=== PATIENT | female | born 1970 | race Caucasian/White ===

== ENCOUNTER 2018-08-16 15:59 | Emergency (ER) | payer BC ==
[~2018-08-16] VITALS: Ht 157.4 cm; Wt 95.3 kg
[~2018-08-16 15:59] MED LIST: AUGMENTIN 875 M1 TA1 PO; AUGMENTIN 875 M1 TAB PO; CALCIUM CARBO1250 MG PO; CALCIUM1 CAP PO; CIPROFLOXACIN500 MG PO; CLARITIN10 MG PO; COLACE100 MG PO; DARVOCET N 1001 TAB PO; DAYPRO600 M1 PO; DULCOLAX10 MG RC; EES400 MG PO; EPI EZ PEN1 MG/ML IM; KEFLEX500 MG PO; MAGNESIA C1.75 GM/30 PO; MEDROL DOSEPAK4 MG PO; MOTRIN600 MG PO; MOTRIN800 MG PO; NORCO 325 MG-51 TAB PO; PERCOCET 325 MG1 TA2 PO; PRENATAL1 TA4 PO; PROVENTIL0.09 MG/AC IH; VICODIN ES 7501 TAB PO; ZITHROMAX Z PA250 MG PO
[2018-08-16] MEDS ORDERED: SEPTDS PO (16:09)
[2018-08-16] MEDS ORDERED: KEFLEX500 M1 PO (16:09)
== END 2018-08-16 16:19 | disposition home or self-care (01) ==
LOC: ED 15:59
DX: N61.1 Abscess of the breast and nipple (principal); Z91.030 Bee allergy status

== ENCOUNTER 2019-06-27 13:32 | Emergency (ER) | payer BC ==
[~2019-06-27] VITALS: Ht 157.4 cm; Wt 90.7 kg
[~2019-06-27 13:32] MED LIST changes: +KEFLEX500 M1 PO; +SEPTDS PO
[2019-06-27] MEDS ORDERED: AMOXICILLIN500 M2 PO (13:57)
[2019-06-27] MEDS ORDERED: NAPROSYN500 MG PO (13:57)
== END 2019-06-27 14:09 | disposition home or self-care (01) ==
LOC: ED 13:32
DX: K04.7 Periapical abscess without sinus (principal); Z91.030 Bee allergy status; Z79.2 Long term (current) use of antibiotics

== ENCOUNTER 2020-02-02 21:01 | Emergency (ER) | payer BC ==
[~2020-02-02 21:01] MED LIST changes: +AMOXICILLIN500 M2 PO; +NAPROSYN500 MG PO
[2020-02-02] MEDS ORDERED: PREDNISONE10 MG PO (21:11)
== END 2020-02-02 21:13 | disposition home or self-care (01) ==
LOC: ED 21:01
DX: L23.7 Allergic contact dermatitis due to plants, except food (principal); Z91.030 Bee allergy status

== ENCOUNTER 2023-11-28 20:21 | Emergency (ER) | payer BC ==
[~2023-11-28] VITALS: Ht 157.4 cm; Wt 102.1 kg
[~2023-11-28 20:21] MED LIST changes: +PREDNISONE10 MG PO
[2023-11-28] MEDS ORDERED: MEDROL DOSEPAK4 MG PO (21:41)
== END 2023-11-28 22:01 | disposition home or self-care (01) ==
LOC: ED 20:21
DX: S29.011A Strain of muscle and tendon of front wall of thorax, initial encounter (principal); J40 Bronchitis, not specified as acute or chronic; Z91.030 Bee allergy status; Z98.890 Other specified postprocedural states; X58.XXXA Exposure to other specified factors, initial encounter; Y93.89 Activity, other specified; Y92.89 Other specified places as the place of occurrence of the external cause; Y99.8 Other external cause status

== ENCOUNTER 2025-04-03 20:26 | Emergency (ER) | payer BC ==
[~2025-04-03] VITALS: Ht 157.4 cm; Wt 104.3 kg
[2025-04-03] MEDS ORDERED: LYLLANA1 EAC4 TD (20:38)
[2025-04-03] MEDS ORDERED: PROGESTERONE100 M2 PO (20:38)
[2025-04-03] MEDS ORDERED: SODIUM CHLORIDE 0.9% 1,000 ML IV ONE (20:45)
[2025-04-03 21:20] LABS: MEAN CELL VOLUME 95.4 fl (81.0-99.0); MEAN CORPUSCULAR HGB 31.4 pg (27.0-31.0); MEAN PLATELET VOLUME 9.0 fl (9.6-12.3); NUCLEATED RED BLOOD CELL 0.0 % (0.0-0.0); NUCLEATED RED BLOOD CELL 0.0 10*3/uL (0.0-0.0); PLATELET COUNT AUTOMATED 348 10*3/uL (130-400); RED CELL DISTRI WIDTH 14.1 % (0-14.5)
[2025-04-03 21:20] LABS: BILIRUBIN Negative (Negative); BLOOD Negative (Negative); CLARITY Clear (Clear); COLOR Yellow (Yellow); KETONE Negative (Negative); LEUKO ESTERASE Negative (Negative); NITRITE Negative (Negative); PH 5.5 (4.5-8.0); SPECIFIC GRAVITY 1.015 (1.001-1.030); UROBILINOGEN 0.2 E.U./dl (0.0-1.0)
[2025-04-03 21:21] LABS: MANUAL DIFF REFLEX YES
[2025-04-03 21:31] LABS: BACTERIA 2+
[2025-04-03 21:38] LABS: BUN 10 mg/dl (9-23)
[2025-04-03 21:44] LABS: BASOPHILS 1 % (0-1)
[2025-04-03 21:46] LABS: PLATELET SUFFICIENCY NORMAL (NORMAL)
== END 2025-04-03 22:32 | disposition home or self-care (01) ==
LOC: ED 20:26
PROVIDERS: Nurse Practitioner Family
DX: E86.0 Dehydration (principal); R25.2 Cramp and spasm; Z91.030 Bee allergy status; Z79.899 Other long term (current) drug therapy

== ENCOUNTER 2025-04-05 22:34 | Emergency (ER) | payer BC ==
[~2025-04-05] VITALS: Ht 157.4 cm; Wt 104.3 kg
[~2025-04-05 22:34] MED LIST changes: +LYLLANA1 EAC4 TD; +PROGESTERONE100 M2 PO
[2025-04-05 23:40] LABS: MEAN CELL VOLUME 94.2 fl (81.0-99.0); MEAN CORPUSCULAR HGB 31.2 pg (27.0-31.0); MEAN PLATELET VOLUME 8.9 fl (9.6-12.3); NUCLEATED RED BLOOD CELL 0.0 % (0.0-0.0); NUCLEATED RED BLOOD CELL 0.0 10*3/uL (0.0-0.0); PLATELET COUNT AUTOMATED 332 10*3/uL (130-400); RED CELL DISTRI WIDTH 13.8 % (0-14.5)
[2025-04-05 23:41] LABS: MANUAL DIFF REFLEX YES
[2025-04-06] LABS: BUN 10 mg/dl (9-23)
[2025-04-06 00:09] LABS: BASOPHILS 1 % (0-1); PLATELET SUFFICIENCY NORMAL (NORMAL)
[2025-04-06] MEDS ORDERED: MEDI-MECLIZINE25 MG PO (02:08)
== END 2025-04-06 02:14 | disposition home or self-care (01) ==
LOC: ED 22:34
PROVIDERS: Internal Medicine
DX: H81.10 Benign paroxysmal vertigo, unspecified ear (principal); I10 Essential (primary) hypertension; D57.1 Sickle-cell disease without crisis; Z91.030 Bee allergy status